=== PATIENT | male | born 1985 | race Caucasian/White ===

== ENCOUNTER 2020-07-04 22:12 | Emergency (ER) | payer MEDICAID, SELFPAY ==
[2020-07-04 22:23] VITALS: BP 142/91; PULSE 105; RESP 27; TEMP 37.5; O2SAT 95; BMI 28.1
[2020-07-04 22:34] VITALS: BMI 28.1
[2020-07-04 22:44] LABS: Basophils # 0.1 K/mm3 (0-0.2); Basophils % 0.4 % (0.1-2.0); Eosinophils # 0.5 K/mm3 (0.0-0.4); Hemoglobin 16.1 g/dL (14.1-18.0); Lymphocytes # 1.6 K/mm3 (0.7-4.5); Mean Corpuscular HGB Conc 33.6 g/dL (31.8-35.4); Mean Corpuscular Hemoglobin 29.6 pg (27.0-31.2); Mean Platelet Volume 6.8 fl (7.4-10.4); Monocytes # 0.5 K/mm3 (0.1-1.0); Monocytes % 3.3 % (1.7-9.3); Neutrophils # 12.1 K/mm3 (1.8-7.8); Neutrophils % 82.3 % (37.0-80.0); Platelet Count 272 K/mm3 (142-424); Red Blood Count 5.45 M/mm3 (4.60-6.20); White Blood Count 14.7 K/mm3 (4.8-10.8)
[2020-07-04 22:49] LABS: Chloride 105 mmol/L (98-107); Sodium 144 mmol/L (136-145)
[2020-07-04 22:50] LABS: Potassium 3.6 mmoL/L (3.5-5.1)
[2020-07-04 22:52] LABS: Alanine Aminotransferase 34 U/L (12-78); Albumin Level 4.7 g/dl (3.5-5.0); Albumin/Globulin Ratio 1.2 (1.1-1.8); Alkaline Phosphatase 96 U/L (38-126); Anion Gap 14.6 mEq/L (5-15); Aspartate Amino Transferase 37 U/L (17-59); Bilirubin,Total 0.6 mg/dl (0.2-1.3); Blood Urea Nitrogen 14 mg/dl (9-20); Carbon Dioxide 28 mmol/L (22.0-30.0); Creatinine Clearance Estimated 94 mL/min (50-200); Estimated Glomerular Filt Rate 63 ml/min (>60); GFR (African American) 76 ML/MIN (>60); Globulin 3.8 g/dL (1.3-3.2); Total Protein,Serum 8.5 g/dl (6.3-8.2)
--- NOTE | 2020-07-04 22:52 | XR_ITS ---
PROCEDURE: XR CHEST 2V CLINICAL HISTORY: shortness of air Shortness of air, smoker COMPARISON: CT CT ABDOMEN PELVIS WO CON from 09/19/2019 FINDINGS: The cardiomediastinal silhouette and pulmonary vascularity are within normal limits. The lungs are clear without infiltrates, suspicious nodules, or pleural effusions. No acute bony abnormalities. IMPRESSION: No acute findings. Dictated by: Yung Jefferson MD 07/05/2020 06:36 Yung Jefferson MD in [place] 07/05/2020 06:36
[2020-07-04 22:53] LABS: Calcium 9.9 mg/dl (8.4-10.2); Glucose 102 mg/dl (74-100)
[2020-07-04 22:54] LABS: Lactic Acid 1.4 mmol/L (0.7-2.1)
[2020-07-04 23:01] LABS: Strep Scrn Group A (Rapid) Negative (Negative)
--- NOTE | 2020-07-04 23:12 | [facility].EDFEV ---
ED Disposition Clinical Impression: Bronchitis Disposition: Home, Self-Care Condition on Discharge: Good Instructions: DI for Fever (Symptom) -- Adult Additional Instructions: fluids and self quarantine till covid results , no tob and use meds Prescriptions: levoFLOXacin [Levaquin 500mg tab] 500 mg PO DAILY #7 tab Transmission Status: Pending to [facility] predniSONE [Prednisone 20mg Tab] 20 mg PO BID #10 tab Transmission Status: Pending to [facility] Referrals: PCP,No [Primary Care Provider] - - Critical Care Critical Care Time: No Attestation: On 07/04/20, the high probability of a clinically significant, sudden or life threatening deterioration of the following system(s) required my full and direct attention, intervention and personal management. The time I documented below is in addition to time spent performing reported procedures but includes the following listed in this critical care notation. Medical Decision Making - Medical Records Medical records reviewed: Yes: I reviewed the patient's medical records. - Gigi Inquiry Pt receiving controlled substance: No Vital Signs: 07/04/20 22:23 Temperature 99.5 F Temperature Source Oral Pulse Rate [Right Brachial] 105 H Respiratory Rate 27 H Blood Pressure [Right Arm] 142/91 H Blood Pressure Mean [Right Arm] 108 Blood Pressure Source [Right Arm] Automatic Cuff Blood Pressure Position [Right Arm] Sitting 02 Sat by Pulse Oximetry 95 Oxygen Delivery Method Room Air - Lab Data Lab results reviewed: Yes: I reviewed the patient's lab results. Lab Results 07/04/20 22:28: WBC 14.7 H, RBC 5.45, Hgb 16.1, Hct 48.0, MCV 88.0, MCH 29.6, MCHC 33.6, RDW 14.0, Plt Count 272, MPV 6.8 L, Neut % (Auto) 82.3 H, Lymph % (Auto) 11.0, Dawes % (Auto) 3.3, Eos % (Auto) 3.0, Baso % (Auto) 0.4, Neut # (Auto) 12.1 H, Lymph # (Auto) 1.6, Dawes # (Auto) 0.5, Eos # (Auto) 0.5 H, Baso # (Auto) 0.1 07/04/20 22:28: Sodium 144, Potassium 3.6, Chloride 105, Carbon Dioxide 28, Anion Gap 14.6, BUN 14, Creatinine 1.30 H, Estimated Creat Clear 94, Estimated GFR 63, Est GFR ( Amer) 76, Glucose 102 H, Calcium 9.9, Total Bilirubin 0.6, AST 37, ALT 34, Alkaline Phosphatase 96, Total Protein 8.5 H, Albumin 4.7, Globulin 3.8 H, Albumin/Globulin Ratio 1.2 07/04/20 22:28: Lactate 1.4 07/04/20 22:28: Influenza Type A Ag Negative, Influenza Type B Ag Negative 07/04/20 22:28: Group A Strep Rapid Negative 07/04/20 22:28: ESR 42 H 07/04/20 22:28: C-Reactive Protein 20.3 H Result diagrams: 07/04/20 22:28 07/04/20 22:28 Orders (Tests/Meds): ED MEDICATIONS Generic Name Dose Route Start Last Admin Trade Name Freq PRN Reason Stop Dose Admin Albuterol Sulfate 2 puffs 07/04/20 22:53 07/04/20 23:03 Proventil-Hfa 90mcg/Puff Inhaler IH 08/03/20 22:52 2 puffs Q4HP PRN Administration Shortness Of Breath Sodium Chloride 1,000 mls @ 999 mls/hr 07/04/20 23:30 07/04/20 23:32 Sod Chlor 0.9% 1000ml Bag IV 07/05/20 00:30 999 mls/hr .Q1H1M MIHCEL Administration Discontinued Medications Generic Name Dose Route Start Last Admin Trade Name Freq PRN Reason Stop Dose Admin Methylprednisolone Sodium Succinate 125 mg 07/04/20 23:26 07/04/20 23:31 Solu-Medrol 125mg/2ml Vial IV 07/04/20 23:27 125 mg ONCE ONE Administration Miscellaneous 1 unit 07/04/20 22:53 07/04/20 23:04 Aerochamber/Optihaler MC 07/04/20 22:54 1 unit ONCE ONE Administration ORDERS Category Date Time Status Chest XR 2 view (NOT portable) [XR chest 2V] Stat Exams 07/04/20 22:52 Taken SARS-CoV-2, [facility]DRE[facility] Stat Lab 07/04/20 22:47 Received Blood Culture Stat Micro 07/04/20 22:51 Received Strep Screen Confirmation Stat Micro 07/04/20 22:28 Received - Radiology Data #1 Image(s): Chest Image Reviewed: Yes I reviewed the patient's radiology image Preliminary Findings: Abnormal (nonspecific) Fever HPI - General Chief Complaint: Fever Stated Co
[2020-07-04 23:17] LABS: C-Reactive Protein 20.3 mg/L (0-4)
[2020-07-04 23:29] LABS: Erythrocyte Sedimentation Rate 42 mm/hr (0-15)
[2020-07-04 23:54] VITALS: BP 136/81; PULSE 83; RESP 20; TEMP 36.9
[2020-07-06 14:18] LABS: Covid-19 Nasal PCR Sendout Lex Not Detected
== END 2020-07-04 23:58 | disposition home or self-care (01) ==
PROVIDERS: Emergency Provider Emergency Medicine
DX: J20.9 Acute bronchitis, unspecified (principal); Z20.828 Contact with and (suspected) exposure to other viral communicable diseases; F17.210 Nicotine dependence, cigarettes, uncomplicated
CPT/HCPCS: 71046; 80053; 83605; 85025; 85651; 86140; 87040; 87275; 87276; 87430; 96365; 96375; 99284; U0004